=== PATIENT | male | born 1995 | race Caucasian/White ===

== ENCOUNTER 2021-04-21 21:41 | Emergency (ER) | payer SELFPAY ==
[2021-04-21] VITALS (7 sets, daily range): BP systolic 120–127; BP diastolic 75–78; PULSE 86–114; RESP 18–20; TEMP 36.9–37.2; O2SAT 96–99; BMI 28.5
--- NOTE | 2021-04-21 21:50 | XRR_ITS ---
PROCEDURE INFORMATION: Exam: XR Chest Exam date and time: 04/21/2021 9:50 PM Age: 25 years old Clinical indication: Cough and fever; Additional info: Cough, fever TECHNIQUE: Imaging protocol: XR of the chest. Views: 1 view. COMPARISON: No relevant prior studies available. FINDINGS: Lungs: Unremarkable. No consolidation. Pleural spaces: Unremarkable. No pleural effusion. No pneumothorax. Heart/Mediastinum: Unremarkable. No cardiomegaly. Bones/joints: Unremarkable. XR/XR chest 1V portable [id number] IMPRESSION: No acute findings.
--- NOTE | 2021-04-21 21:52 | W.ED.FEVER ---
HPI - Fever General: Chief Complaint: COVID symptoms Stated Complaint: covid sx:fever(105@home),cough,nausea Time Seen by Provider: 04/21/21 21:50 History of Present Illness: HPI Narrative: Patient has been ill since Thursday. Patient has fevers up to recorded 105 at home. Patient does report cough and some mild shortness of breath. Patient is alert and oriented. Patient's fevers come down to 98 9 at this time. Patient did not get Covid vaccine. elicited complaint: fever Review of Systems General: Reports: 10 or more systems reviewed and unremarkable except in HPI and below Const: Reports: fever(s) Resp: Reports: non-productive cough Physical Exam Const: COMMON NORMALS: no acute distress and patient oriented x3 GENERAL APPEARANCE: cooperative HENMT: COMMON NORMALS: normocephalic, TM's normal bilaterally and Normal external nose present HEAD & SCALP: normal to inspection and normocephalic NOSE: Normal external nose present TYMPANIC MEMBRANE: TM's normal bilaterally MOUTH: Normal oral and palatal mucosa present THROAT: posterior oropharynx normal Eye: GENERAL EYE: appearance normal, both eyes and all related structures Neck/C-Spine: COMMON NORMALS: full ROM Lymph: LYMPHATIC: no lymphadenopathy noted Chest: COMMONS NORMALS: normal inspection of the chest Resp: COMMON NORMALS: normal respiratory effort EFFORT & INSPECTION: Yes able to speak in complete sentences AUSCULTATION: wheezes Cardio: COMMON NORMALS: regular rate and regular rhythm RATE: regular rate RHYTHM: regular rhythm GI: COMMON NORMALS: non-tender : COMMON NORMALS: Yes no CVA tenderness BLADDER/KIDNEY EXAM: Yes no CVA tenderness Back/Pelvis: COMMON NORMALS: no CVA tenderness and thoracic and lumbar spine normal to inspection Extremity: COMMON NORMALS: normal to inspection Neuro: COMMON NORMALS: patient oriented x3 and moves all extremities Psych: COMMON NORMALS: mental status grossly normal and cooperative Skin: COMMON NORMALS: no rashes or lesions noted GENERAL SKIN EXAM: no rashes or lesions noted Course Vital Signs: Vital signs: Vital Signs Temperature 98.9 F 04/21/21 21:50 Pulse Rate 98 04/21/21 22:54 Respiratory Rate 18 04/21/21 22:54 Blood Pressure 120/78 04/21/21 22:54 Pulse Oximetry 99 04/21/21 22:54 MDM - Fever MDM Narrative: Medical decision making narrative: Patient comes in today with illness for about 5 days. On exam patient reports cough and congestion. Lungs have wheezing throughout lung bach. Skin is warm and dry. Vital signs note a normal blood pressure mild elevation of pulse and respirations, but good pulse oximetry. Differential diagnosis includes COVID-19, pneumonia, viral syndrome. COVID-19 test was positive. Chest x-ray notes some bilateral patchy pneumonia. Patient was administered dexamethasone, ketorolac, and IV fluids. Patient had improvement in overall symptoms. Patient will be continued on albuterol inhaler 2 puffs every 4 hours for cough and congestion. Patient was also written 5-day course of dexamethasone 6 mg. Reviewed exam with patient with recommendations for monitoring oxygen return as needed. Patient reported understanding. Lab Data: Labs: Lab Results 04/21/21 Range/Units 22:05 SARS-CoV-2 Ag (Rap id) Positive H (Negative) Discharge Plan Discharge Patient Disposition: Home Clinical Impression: Pneumonia due to 2019 novel coronavirus Condition: Stable Prescriptions: New dexamethasone 6 mg tablet 6 mg PO DAILY Qty: 5 RF: 0 Discharge Orders: Discharge ED (Routine); Ordered 04/21/21 Ordered By: Kelby Berg Referrals: Sammy Coburn DO [Primary Care Provider] - Discharge Diet: Usual diet Discharge Activity: Increase activity as tolerated Patient Instructions: Viral Pneumonia (ED), Opioid Safety Activity Restrictions/Additional Instructions: Encourage plenty of fluids. Use dexamethasone daily. Use albuterol inhaler 2 puffs every 4 hours as needed for cough or shortness of breath. Acetaminophen and ibuprofen for pain and fever. Monitor pulse oxygen with oximetry device. If oxygen saturation gets below 90 and does not improve with deep breaths or movement you need to return to the ER for further evaluation and treatment. Follow-up with primary care as needed. Coding Level of Care Code ED Product Management Intern for Reg [facility]ings[facility] Exam Comprehensive
[2021-04-21] MEDS: dexamethasone 4 mg/mL INJ 8 MG IVP (22:10)
[2021-04-21] MEDS: ondansetron 2 mg/ML SDV 2 mL 4 MG IVP (22:12)
[2021-04-21] MEDS: sodium chloride 0.9% 1,000 ML 999 ML IV (22:15)
[2021-04-21] MEDS: ketorolac 30 mg/mL INJ 15 MG IVP (22:16)
[2021-04-21] MEDS: albuterol 8 gm MDI 2 PUFF INHALATION (22:30)
[2021-04-21 22:37] LABS: SARS Covid-2 Antigen Positive (Negative)
== END 2021-04-21 23:32 | disposition home or self-care (01) ==
PROVIDERS: Emergency Provider Nurse Practitioner Family; PCP Internal Medicine
DX: U07.1 COVID-19 (principal); J12.82 Pneumonia due to coronavirus disease 2019
CPT/HCPCS: 71045; 87426; 94640; 96361; 96374; 96375; 99284; J1100; J1885; J2405; J3535; J7030